=== PATIENT | male | born 1995 | race Caucasian/White ===

== ENCOUNTER 2018-04-03 06:14 | Day surgery (SDC) | payer BC ==
--- NOTE | 2018-04-02 18:27 | Pre-Procedure Note/Attestation ---
Pre-Procedure Note/Attestation Complete Prior to Procedure Planned Procedure: bilateral Procedure Narrative: 1. ORIF nasal fracture 2. Septoplasty 3. Submucous resection right inferiot turbinate 4. Submucous resection left inferior turbinate 5. Excision right bilateral breast cyst with Dr. EDUARDO Gross. Indications for Procedure Pre-Operative Diagnosis: 1. Nasal deformity scondary to trauma 2. Nasal septal deviation 3. Hypertrophied right inferior turbinate 4. Hypertrophied left inferior turbinate 5. Bilateral breast cyst Attestation I attest that I discussed the nature of the procedure; its benefits; risks and complications; and alternatives (and the risks and benefits of such alternatives ), prior to the procedure, with the patient (or the patient's legal patient financial representative). I attest that, if there was a reasonable possibility of needing a blood transfusion, the patient (or the patient's legal patient financial representative) was given the [facility] standardized written summary, pursuant to the Neo [place] Blood Safety Act ([place] Health and Safety Code # 1645, as amended). I attest that I re-evaluated the patient just prior to the surgery and that there has been no change in the patient's H&P, : JUNIOR MATHEWS Apr 02, 2018 18:27
--- NOTE | 2018-04-02 18:30 | Brief Operative Note ---
Immediate Post Operative Note Operative Note Chief Complaint: Nasal deformity, nasal airway obstruction, bilateral breast cyst Pre-op Diagnosis: 1. Nasal deformity scondary to trauma 2. Nasal septal deviation 3. Hypertrophied right inferior turbinate 4. Hypertrophied left inferior turbinate 5. Bilateral breast cyst Procedure: 1. ORIF nasal fracture 2. Septoplasty 3. Submucous resection right inferiot turbinate 4. Submucous resection left inferior turbinate 5. Excision right bilateral breast cyst with Dr. EDUARDO Gross. Post-op Diagnosis: same as pre-op Surgeon: Junior Mathews Key Carrier: none Additional Surgeons: Hi Bynum Anesthesiologist: Arnaldo Anesthesia: general Specimen: yes - RIght and left breast Complications: none Condition: stable Fluids: [id number] Estimated Blood Loss: volume - 50 cc Drains: none Packing: Stamberger nasal gel Implant(s) used?: No JUNIOR MATHEWS Apr 02, 2018 18:30
[~2018-04-03] VITALS: Ht 172.7 cm; Wt 81.6 kg
[2018-04-03] VITALS (9 sets, daily range): BP systolic 132–151; BP diastolic 59–86
--- NOTE | 2018-04-03 00:30 | Pre-op HX & Phy Repo 2 SIG ---
DATE OF ADMISSION: 04/03/2018 DATE OF OPERATION: 04/03/2018 PREOPERATIVE DIAGNOSIS: The patient with a nasal fracture to the outside of his nose, septal deviation, hypertrophied right and left inferior turbinates, and bilateral breast cyst. INDICATION FOR SURGERY: Correct nasal deformity secondary to fracture, septal deviation, and hypertrophied right and left inferior turbinates with some paranasal breathing as well as excised both cysts below the nipple, one in either breasts approximately 3 cm across. Please note that Dr. Rosanna Gross will be doing the breast case with me. PAST MEDICAL HISTORY: Remarkable for asthma, which the patient has had for years, is well controlled as needed with albuterol sulfate. He takes Lexapro. For postoperative, he has [place] and minocycline. No surgeries. FAMILY HISTORY: Unremarkable for heart, liver, lung, kidney, tobacco, alcohol, or chemical dependency issues, but does have high blood pressure in his family. PHYSICAL EXAMINATION: VITAL SIGNS: The patient is 5 feet 8 inches, 180 pounds, and BMI 27.35. Blood pressure 120/80, temperature 98.6 degrees, heart rate is 60, and respiratory rate 13. HEENT: Nose, nasal deformity, septal deviation, and hypertrophied right and left inferior turbinates. BREASTS: His breasts have under the nipple inferiorly mobile, well circumcised masses, each about 3 cm, like a small walnut, appeared to be well encapsulated. CHEST: Clear to A and P. ABDOMEN: Soft and nontender. Normoactive bowel sounds. EXTREMITIES: Grossly normal. GENITOURINARY: Not done. He is just checked on regular basis by his primary care physician. ASSESSMENT: Nasal deformity, nasal septal deviation, hypertrophied right and left inferior turbinates, and bilateral breast cyst. PLAN: Excise breast cyst with Dr. Gross and I will do the nose ORIF nasal deformity, septoplasty, and submucous resection of right and left inferior turbinates. Shan Flores M.D. DR: LUCRECIA JOB#: [id number] CC: IRIS
[~2018-04-03 06:14] MED LIST: Bupivacaine 0.5% Inj 30 ml vial INJ ONE; Cocaine HCl 4% 4ml vial TOPIC ONE; EPINEPHrine 1mg/1ml Amp ONE; LEXAPRO10 MG ORAL; Lidocaine 1% 10mg/ml/Epi 0.005mg/ml 30ml vial INJ ONE; MINOCYCLINE HC100 MG PO; VENTOLIN HFA18 GM INH
[2018-04-03] MEDS ORDERED: NS Irrig 1000ml ONE (07:00)
[2018-04-03] MEDS ORDERED: Dexamethasone 4mg/ml vial IVP ONE (07:00)
[2018-04-03] MEDS ORDERED: ceFAZolin sod 1 GM in D5W 55 ML IV ONE (07:00)
[2018-04-03] MEDS ORDERED: Sterile Water Irrig 1000ml IRRIG ONE (07:00)
[2018-04-03] MEDS ORDERED: Bacitracin 50000 Units Vial ONE (07:02)
[2018-04-03] MEDS ORDERED: Bacitracin Oint 15gm Tube TOPIC ONE (07:02)
[2018-04-03] MEDS ORDERED: Midazolam 2mg/2ml Inj ONE (07:14)
[2018-04-03] MEDS ORDERED: fentaNYL 100 mcg/2 mL IV ONE (07:14)
[2018-04-03] MEDS ORDERED: Propofol 200mg/20ml IV ONE (07:16)
[2018-04-03] MEDS ORDERED: Lidocaine 1% MPF 10mg/ml 5ml ONE (07:16)
--- NOTE | 2018-04-03 08:08 | Pre-Procedure Note/Attestation ---
Pre-Procedure Note/Attestation Complete Prior to Procedure Planned Procedure: bilateral Procedure Narrative: excision of bilateral breast masses Indications for Procedure Pre-Operative Diagnosis: bilateral breast mass Attestation I attest that I discussed the nature of the procedure; its benefits; risks and complications; and alternatives (and the risks and benefits of such alternatives ), prior to the procedure, with the patient (or the patient's legal community representative). I attest that, if there was a reasonable possibility of needing a blood transfusion, the patient (or the patient's legal community representative) was given the [facility] standardized written summary, pursuant to the Neo [place] Blood Safety Act ([place] Health and Safety Code # 1645, as amended). I attest that I re-evaluated the patient just prior to the surgery and that there has been no change in the patient's H&P, except as documented below: Juan David Bynum Apr 03, 2018 08:08
[2018-04-03] MEDS ORDERED: LR 1000ml 1,000 ML IVLG SCH (08:19)
--- NOTE | 2018-04-03 08:24 | Anethesia Preoperative Eval ---
Anesthesia Pre-op PMH/ROS General Date of Evaluation: Apr 03, 2018 Time of Evaluation: 07:30 Anesthesiologist: Arnaldo ASA Score: ASA 2 Mallampati Score Class I : Soft palate, uvula, fauces, pillars visible Class II: Soft palate, uvula, fauces visible Class III: Soft palate, base of uvula visible Class IV: Only hard plate visible Mallampati Classification: Class II Surgeon: Sandra Diagnosis: Nasal fracture Surgical Procedure: ORIF nasal fracture, septoplasty, SMR, turbinectomies Family History: no anesthesia problems Allergies: Coded Allergies: No Known Allergies (Unverified , 04/02/18) Medications: see eMAR Past Medical History Cardiovascular: Denies: HTN, CAD, AR, valve dz, arrhythmia, other Pulmonary: Reports: asthma; Denies: COPD, KELLY, other Gastrointestinal/Genitourinary: Denies: GERD, CRI, ESRD, other Neurologic/Psychiatric: Denies: dementia, CVA, depression/anxiety, TIA, other Endocrine: Denies: DM, hypothyroidism, steroids, other HEENT: Denies: cataract (L), cataract (R), glaucoma, [place] (L), [place] (R), other Hematology/Immune: Denies: anemia, DVT, bleeding disorder, other Musculoskeletal/Integumentary: Denies: OA, RA, DJD, DDD, edema, other PMH Narrative: Asthma, acne PSxH Narrative: [place] teeth Anesthesia Pre-op Phys. Exam Physician Exam Last Vital Signs Date Time Temp Pulse Resp B/P (MAP) Pulse Ox O2 Delivery O2 Flow Rate FiO2 04/03/18 07:07 98.1 62 20 132/64 (86) 100 98.1 04/03/18 06:49 Room Air Constitutional: NAD Neurologic: CN 2-12 intact Cardiovascular: RRR, no M/R/G Respiratory: CTA Gastrointestinal: S/NT/ND Airway Exam Mallampati Score: Class II MO: full ROM: full Teeth: intact Anesthesia Pre-op A/P Labs WNL Risk Assessment & Plan Assessment: Asthmatic patient for ORIF nasal fracture Plan: GA, LMA Status Change Before Surgery: No Pre-Antibiotics Drug: Ancef Given Within 1 Hr of Incision: Yes Time Given: 07:50 Neo Mcintosh MD Apr 03, 2018 08:24
--- NOTE | 2018-04-03 08:25 | Immediate Post-Op Evaluation ---
Immediate Post-Op Evalulation Immediate Post-Op Evalulation Procedure: ORIF nasal fracture, septoplasty, SMR, turbinectomy Date of Evaluation: Apr 03, 2018 Time of Evaluation: 09:45 IV Fluids: 600 Estimated Blood Loss: 40 Blood Pressure Systolic: 151 Blood Pressure Diastolic: 86 Pulse Rate: 86 Respiratory Rate: 20 O2 Sat by Pulse Oximetry: 97 Temperature (Fahrenheit): 97.6 Pain Score (1-10): 0 Nausea: No Vomiting: No Complications No complication Patient Status: awake, patent, none Hydration Status: adequate Drug: Ancef Given Within 1 Hr of Incision: Yes Time Given: 07:50 Neo Mcintosh MD Apr 03, 2018 08:25
[2018-04-03] MEDS ORDERED: DiphenhydrAMINE 50mg/ml Inj IVP PRN (08:30)
[2018-04-03] MEDS ORDERED: Meperidine 50mg/ml Inj(FOR RIGORS ONLY) IVP PRN (08:30)
[2018-04-03] MEDS ORDERED: Midazolam 2mg/2ml Inj IVP PRN (08:30)
[2018-04-03] MEDS ORDERED: Sodium Chloride 10ml vial INJ ONE (09:14)
--- NOTE | 2018-04-03 09:45 | 48 Hour Post Anesthesia Eval ---
Post Anesthesia Evaluation Procedure: ORIF nasal fracture, septoplasty, SMR, turbinectomy Date of Evaluation: Apr 03, 2018 Time of Evaluation: 10:15 Blood Pressure Systolic: 148 0: 85 Pulse Rate: 81 Respiratory Rate: 18 O2 Sat by Pulse Oximetry: 99 Airway: patent Nausea: No Vomiting: No Pain Intensity: 0 Hydration Status: adequate Cardiopulmonary Status: Stable Mental Status/LOC: patient returned to baseline Follow-up Care/Observations: As per surgery Post-Anesthesia Complications: No anesthetic complication Follow-up care needed: N/A Neo Mcintosh MD Apr 03, 2018 09:45
[2018-04-03] MEDS ORDERED: Metoclopramide 10mg/2ml Inj IVP PRN (10:00)
[2018-04-03] MEDS ORDERED: Norco 5mg/325mg tab ORAL PRN (10:00)
--- NOTE | 2018-04-03 10:02 | Discharge Instructions ---
Discharge Instructions Discharge Instructions Follow up with: pt has appt next week with Dr. Mathews Diet: regular Resume Normal Activity?: No Activity: light activity Pneumonia Vaccine: pt refused vaccine Influenza Vaccine (Jun to Nov): pt refused vaccine Follow Up Orders Pt has printed post op instructions and rx for pain meds given to him last week at his pre op visit. Return to Work/School on: Apr 17, 2018 For Surgical Patients May shower: Yes For Congestive Heart Failure Reminder Report to your physician any weight gain of 5 pounds or more in one week. JUNIOR MATHEWS Apr 03, 2018 10:02
--- NOTE | 2018-04-03 22:00 | Operative Note - Dictated ---
DATE OF OPERATION: 04/03/2018 SURGEON: Shan Flores M.D. ADDITIONAL SURGEON: Dr. Gross. INDICATION FOR SURGERY: The patient has a nasal deformity due to numerous traumas to his nose as well as septal deviation and hypertrophied right and left inferior turbinates. Additionally, he has two cysts, one under each nipple for removal. PREOPERATIVE DIAGNOSIS: The patient has a nasal deformity due to numerous traumas to his nose as well as septal deviation and hypertrophied right and left inferior turbinates. Additionally, he has two cysts, one under each nipple for removal. POSTOPERATIVE DIAGNOSIS: The patient has a nasal deformity due to numerous traumas to his nose as well as septal deviation and hypertrophied right and left inferior turbinates. Additionally, he has two cysts, one under each nipple for removal. FINDINGS: The patient has a nasal deformity due to numerous traumas to his nose as well as septal deviation and hypertrophied right and left inferior turbinates. Additionally, he has two cysts, one under each nipple for removal. PROCEDURES: 1. Open reduction and internal fixation of nasal deformity. 2. Septoplasty. 3. Submucous resection of right inferior turbinate. 4. Submucous resection of left inferior turbinate. 5. Excision of bilateral breast tumors. This will be dictated by Dr. Gross. TECHNIQUE: The patient was prepped and draped in usual manner. Time-out was performed. All agreed as to the procedure to be done. Initially, 3 mL of 1% lidocaine with 1:100,000 epinephrine injected into each nipple and deep under the cyst to palpation. I then proceeded to inject the nose with another 15 mL of the same mixture. The breast area was covered. I then proceeded to make an incision on the left hand side with a #15 blade for Allen incision. I removed 3 cm of the quadrangular cartilage and the vomer on the left was fractured in. The flap was then put back together and closed with a 4-0 plain suture. I then proceeded to make an incision on either inferior turbinate with #15 blade. Elevated with a radiofrequency knife and punctured two times each at a setting of 6 coating with saline gel for 10 seconds. Then, each inferior turbinate was outfractured. Between the cartilage, incisions were made, elevated over the anterior nose with the Bueno scissors. Medial osteotomies and low lateral osteotomies were performed. Pipo forceps utilized to make sure there was no greenstick fracture. Nose was then placed back into normal anatomic position and rasped from the anterior. Tape and stent was placed. Stammberger nasal gel was placed in the nose. Mustache dressing was placed. Dr. Gross will dictate the breast mass excisions. At the end of the breast mass excisions, dressings were placed over either nipple and the patient was extubated, awake and alert, and stable in the operating room, and 20 minutes later I saw him in the recovery room where he was resting comfortably. Sponge and needle count was correct. ESTIMATED BLOOD LOSS: 50 mL for the two procedures. COMPLICATIONS: None. DRAINS: None. PACKING: Stammberger nasal gel as noted before. Shan Flores M.D. DR: SVETLANA JOB#: [id number] CC:
--- NOTE | 2018-04-03 22:00 | Operative Note - Dictated ---
DATE OF OPERATION: 04/03/2018 PREOPERATIVE DIAGNOSIS: Bilateral breast mass POSTOPERATIVE DIAGNOSIS: Bilateral breast mass OPERATION PERFORMED: Excision of bilateral breast mass SURGEON: Juan David Bynum M.D. CO-SURGEON: Shan Flores M.D. ANESTHESIOLOGIST: Dr. Neo Mcintosh. ANESTHESIA: General GROCERY CLERK. ESTIMATED BLOOD LOSS: Minimal. IV FLUIDS: Please see anesthesia records. COMPLICATIONS: None. DRAINS: None. WOUND CLASSIFICATION: Class I. ANTIBIOTICS: The patient was given IV antibiotics one hour prior to cut time. COUNTS: Sponge and needle count correct x2. SPECIMENS: 1. Right breast mass. 2. Left breast mass. INDICATIONS FOR PROCEDURE: This is a 22-year-old male seen prior by Dr. Flores for evaluation of both nasal/ENT problems as well as bilateral breast masses. 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 They would intermittently get larger and were concerning. On examination, it was noted that the patient had inferior areolar breast mass on both the right and left breast with distribution more inferior than around the nipple areolar complex and a little bit more inferior, not fully consistent with gynecomastia, but definitely a palpable mass that was considered times potentially even be a cyst. Given these above interval findings and symptoms, excision was indicated and recommended. The patient was to have ENT nasal surgery planned prior and decision made to doing procedure immediate following and I was called to help with the breast portion of the procedure. Risks, benefits and alternatives were discussed with the patient's family and consent was obtained prior to surgery. OPERATIVE NOTE: The patient was taken to the operating, placed on the operating table in supine position with bilateral arms tucked. All bony prominences were well padded. SCDs were placed. Preoperative time-out was taken identifying the patient, procedure, operative staff, and surgical staff. General anesthesia was induced and the patient was intubated. Dr. Flores began with the first portion of the procedure for the ENT nasal portion. Please refer to Dr. Flores's note for details. After completion of the ENT nasal portion of the procedure, the bilateral chest wall were prepped and draped in the standard surgical fashion. We began on the right side with palpating mass identifying the location. Decision was made to proceed with an infra-areolar incision. An infra-areolar incision was made using a fresh #15 scalpel and was carried down through the dermis and subcutaneous tissue with electrocautery. The abnormal subareolar and inferior mass was identified and grasped with an Allis grasper. He had a clear plane and was circumferentially dissected out with electrocautery. The plane at this point was likely believed to be part of the gland or hormonal growth abutting the areolar glands. Once the area was completely dissected out, it was divided from the nipple areolar complex while ensuring to protect enough skin for viability of the nipple areolar complex and surrounding tissues. Once it was excised, it was sent to pathology for review. The remaining defect was evaluated and electrocautery was used to obtain hemostasis. The wound was irrigated and once good hemostasis was noted, we began the closure. A 5-0 Monocryl sutures were used in an interrupted fashion to close the skin incision. Once this was completed, a sterile gauze was placed and the attention was turned to the left breast. In a similar fashion, infra-areolar incision was made using a #15 scalpel on the left breast, this was carried down to the subcutaneous tissue with electrocautery. Following this, the left breast mass was identified and again abutting the inferior portion of the nipple-areolar complex. It was grasped with an Allis grasper and sutured circumferentially dissected out through its fine plane. Once this was complete, it was divided from the nipple areolar complex ensuring to protect enough skin for viability in nipple areolar complex and surrounding tissues. This mass was sent to pathology for review and labeled as left breast mass. Once this was complete, hemostasis was achieved with electrocautery and wound was irrigated. Following this, the skin incision was closed in a similar fashion using multiple interrupted 5-0 Monocryl sutures. Once this was completed, at this point, the wounds were cleansed. Skin glue was applied followed by 2 x 2 gauze and a Tegaderm. The left and right masses were identified and the right mass was noted to be large than the left mass measuring approximately 5 cm x 4 cm x 1 to 2 cm and left measuring 4 cm x 3 cm x 1 cm. The patient tolerated the procedure well, was extubated and taken to postanesthetic care unit in stable postanesthetic care unit in stable condition. Juan David Bynum M.D. DR: CHITO JOB#: [id number] CC: Shan Flores M.D.; Fax#: [phone] [facility]ITAL[facility]
== END 2018-04-03 11:15 | disposition home or self-care (01) ==
LOC: SUR 06:14 → EDSEX 07:30 → SUR 11:15
DX: S02.2XXA Fracture of nasal bones, initial encounter for closed fracture (principal); J34.2 Deviated nasal septum; J34.3 Hypertrophy of nasal turbinates; N63.0 Unspecified lump in unspecified breast; J45.909 Unspecified asthma, uncomplicated
CPT/HCPCS: 19120; 30140; 30520; J0171; J0690; J1170; J2250; J2405; J2704; J3010; J3490; 94003; 94150